=== PATIENT | female | born 1945 | race Caucasian/White ===

== ENCOUNTER 2022-06-02 19:18 | Emergency (ER) | payer MEDICARE ==
[2022-06-02 19:58] VITALS: BP 168/76
[2022-06-02] MEDS ORDERED: ASPI81CH33 PO (20:18)
[2022-06-02] MEDS ORDERED: DULO-34 PO (20:18)
[2022-06-02] MEDS ORDERED: BUSP5TA PO (20:18)
[2022-06-02] MEDS ORDERED: QUET50TA4 PO (20:18)
[2022-06-02] MEDS ORDERED: QUET1TAB17 PO (20:18)
[2022-06-02] MEDS ORDERED: PRAV20TA2 PO (20:18)
[2022-06-02] MEDS ORDERED: ASPI-655 PO (20:18)
[2022-06-02] MEDS ORDERED: SYNT25TA PO (20:18)
[2022-06-02] MEDS ORDERED: ACET-907 PO (20:18)
[2022-06-02] MEDS ORDERED: BUPR150T12 PO (20:18)
[2022-06-02] MEDS ORDERED: HOME MED LIST COMPLETE! XX SCH (20:20)
== END 2022-06-02 22:49 | disposition home or self-care (01) ==
LOC: M ED 19:18
DX: G30.9 Alzheimer's disease, unspecified (principal); F02.818 Dementia in other diseases classified elsewhere, unspecified severity, with other behavioral disturbance